=== PATIENT | male | born 1945 | race Caucasian/White ===

== ENCOUNTER 2017-05-26 20:09 | Emergency (ER) | payer OTHER ==
[~2017-05-26 20:09] MED LIST: MEDROL4 M2 PO
[2017-05-26 20:37] VITALS: BP 127/70
== END 2017-05-26 22:10 | disposition admitted as inpatient to this hospital (09) ==
LOC: ERH 20:09
DX: M79.671 Pain in right foot (principal)

== ENCOUNTER 2017-06-01 12:42 | Emergency (ER) | payer OTHER ==
[~2017-06-01] VITALS: Ht 172.7 cm; Wt 70.3 kg
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
[2017-06-01 17:02] VITALS: BP 133/70
== END 2017-06-01 17:02 ==
LOC: ERH 12:42
DX: Z77.098 Contact with and (suspected) exposure to other hazardous, chiefly nonmedicinal, chemicals (principal)